=== PATIENT | male | born 1995 ===

== ENCOUNTER 2020-02-06 15:09 | Outpatient (REF) | payer BC, SELFPAY ==
[2020-02-09 14:12] LABS: SARS-CoV-2 Specimen Source Nasopharynx
[2020-02-09 14:25] LABS: SARS-CoV-2 RNA Undetected (Undetected)
== END 2020-02-06 15:29 ==
LOC: NCHCN 15:09
PROVIDERS: PCP Family Medicine; Visit Provider Family Medicine
DX: Z11.59 Encounter for screening for other viral diseases (principal)
CPT/HCPCS: U0003

== ENCOUNTER 2020-03-09 22:23 | Outpatient (REF) | payer BC, SELFPAY ==
[2020-03-12 23:53] LABS: Patient Race White; SARS-CoV-2 RNA Undetected (Undetected); SARS-CoV-2 Specimen Source Nasopharynx
== END 2020-03-09 22:43 ==
LOC: NCHCN 22:23
PROVIDERS: PCP Family Medicine; Visit Provider Nurse Practitioner Family
DX: Z20.828 Contact with and (suspected) exposure to other viral communicable diseases (principal)
CPT/HCPCS: U0003